=== PATIENT | female | born 1985 | race Caucasian/White ===

== ENCOUNTER → 2017-10-03 17:00 | Outpatient (CLI) | payer OTHER, SELFPAY | PROVIDERS: Visit Provider Physician Assistant | DX: R30.0 Dysuria (principal) | CPT/HCPCS: 87086 ==

== ENCOUNTER → 2020-02-12 12:18 | Outpatient (CLI) | payer OTHER, SELFPAY ==
--- NOTE | 2020-02-12 | DI.MG.S_ITS ---
BILATERAL DIGITAL DIAGNOSTIC MAMMOGRAM 3D/2D: 02/12/2020 CLINICAL: Baseline exam. Left breast lump. No prior exams were available for comparison. The tissue of both breasts is heterogeneously dense. This may lower the sensitivity of mammography. There is a 1.8 cm oval mass with a circumscribed margin in the left breast at 1 o'clock middle depth. This correlates as palpated. No other significant masses, calcifications, or other findings are seen in either breast. IMPRESSION: INCOMPLETE: NEEDS ADDITIONAL IMAGING EVALUATION The 1.8 cm oval mass in the left breast is indeterminate. An ultrasound is recommended. This exam was interpreted at Station ID: [id number]. NOTE: For mammograms, a report in lay terms will be sent to the patient. Approximately 15% of breast malignancies will not be visualized mammographically. In the management of a palpable breast mass, a negative mammogram must not discourage biopsy of a clinically suspicious lesion. SUMMARY: Targeted ultrasound is recommended for further evaluation and will be scheduled immediately following this exam. Electronically Signed By: Bipin ramos/janeth:02/12/2020 14:45:48 ACR BI-RADS Category 0: Incomplete [id number]
--- NOTE | 2020-02-12 | DI.US.S_ITS ---
LIMITED ULTRASOUND OF LEFT BREAST: 02/12/2020 CLINICAL: Left breast lump. Comparison is made to exam dated: 02/12/2020 [facility]. Color flow ultrasound of the left breast was performed. [place] scale images of the real-time examination were reviewed. There is a benign 1.6 cm x 1.6 cm x 1.3 cm simple cyst in the left breast at 1 o'clock anterior depth 3 cm from the nipple. This correlates as palpated and with mammography findings. IMPRESSION: BENIGN There is no sonographic evidence of malignancy. The 1.6 cm x 1.6 cm x 1.3 cm simple cyst in the left breast is benign. A 3 year screening mammogram is recommended. This exam was interpreted at Station ID: [id number]. Electronically Signed By: Bipin ramos/janeth:02/12/2020 14:47:12 letter sent: Normal Exam Ultrasound BI-RADS: 2 Benign
== END ==
PROVIDERS: PCP Family Medicine; Referring Provider Family Medicine; Visit Provider Family Medicine
DX: R92.8 Other abnormal and inconclusive findings on diagnostic imaging of breast (principal); N60.02 Solitary cyst of left breast
CPT/HCPCS: 76642; 77066; G0279

== ENCOUNTER → 2020-12-30 16:06 | Outpatient (CLI) | payer OTHER, SELFPAY ==
--- NOTE | 2020-12-30 | DI.US.S_ITS ---
PROCEDURE: US PELVIC COMPLETE INDICATIONS: ABNORMAL BLEEDING TECHNIQUE: Real-time scanning was performed of the pelvic organs, with image documentation. Additional endovaginal scanning was necessary due to incomplete visualization of the adnexal and endometrial structures by transabdominal scanning. COMPARISON: None. FINDINGS: Uterus: Uterus is normal in size at 8.9 x 4.6 x 6.5 cm. The endometrium measures 10.9 mm in combined thickness. 1.2 cm posterior submucosal fibroid. Ovaries: Dominant follicular cyst associated with the left ovary; otherwise the ovaries are normal bilaterally. No adnexal masses seen. Other: No pathologic free abdominal or pelvic fluid. IMPRESSION: 1.2 cm submucosal fibroid. Dictated by: Anshul Rodriguez [facility] Interpreted: Aime Concepcion MD on 12/31/2020 at 9:34 Transcribed by: YENI on 12/31/2020 at 9:36 Approved by: Aime Concepcion M.D. on 12/31/2020 at 13:36
== END ==
PROVIDERS: PCP Family Medicine; Referring Provider Physician Assistant; Visit Provider Physician Assistant
DX: N92.0 Excessive and frequent menstruation with regular cycle (principal); D25.0 Submucous leiomyoma of uterus
CPT/HCPCS: 76830; 76856

== ENCOUNTER → 2021-01-27 12:17 | Outpatient (CLI) | payer OTHER, SELFPAY | PROVIDERS: PCP Family Medicine; Referring Provider Nurse Practitioner Family; Visit Provider Nurse Practitioner Family | DX: R39.15 Urgency of urination (principal); R30.0 Dysuria | CPT/HCPCS: 87077; 87086; 87147 ==

== ENCOUNTER → 2023-08-24 08:56 | Outpatient (CLI) | payer OTHER, SELFPAY ==
[2023-08-24 09:55] LABS: Add Manual Diff / Slide Review NO; Basophils Absolute Auto 0 /uL (0-100); Basophils Percent Auto 0.8 % (0-2); Eosinophils Absolute Auto 100 /uL (0-450); Eosinophils Percent Auto 1.2 % (2-4); Hematocrit 39.9 % (36-46); Hemoglobin 13.6 g/dL (12.0-16.0); Hemoglobin A1C% w Est Avg Glu 5.3 % (4.0-6.0); Lymphocytes Absolute Auto 1600 /uL (1100-4500); Lymphocytes Percent Auto 28.9 % (25-40); Mean Corpuscular HGB Conc 34.1 % (30-36); Mean Corpuscular Hemoglobin 30.3 PG (26-34); Mean Corpuscular Volume 88.9 fL (80-100); Monocytes Absolute Auto 400 /uL (0-900); Monocytes Percent Auto 7.3 % (3-14); Neutrophils Absolute Auto 3500 /uL (1500-7000); Neutrophils Percent Auto 61.8 % (50-75); Platelet Count 235 X10^3/uL (150-400); Red Blood Cell Count 4.49 X10^6/uL (4.0-5.2); Red Cell Distribution Width 13.1 % (11.6-14.8); White Blood Cell Count 5.7 X10^3/uL (4.5-11.0)
[2023-08-24 10:03] LABS: HEMOLYSIS < 15 (0-50)
[2023-08-24 10:18] LABS: Alanine Aminotransferase 46 IU/L (<35); Albumin 3.9 g/dL (3.5-5.0); Albumin Globulin Ratio 1.4 (1.0-2.8); Alkaline Phosphatase 67 U/L (38-126); Aspartate Aminotransferase 28 IU/L (14-36); BUN Creatinine Ratio 21.5 (6-22); Bilirubin Total 0.4 mg/dL (0.2-1.3); Blood Urea Nitrogen 14 mg/dL (7-17); Calcium 9.6 mg/dL (8.4-10.2); Carbon Dioxide 27 mmol/L (22-32); Chloride 106 mmol/L (98-107); Cholesterol 159 mg/dL (140-199); Estimated Glomerular Filt Rate > 60 mL/min (>60); Globulin 2.8 g/dL (1.7-4.1); Glucose 88 mg/dL (70-100); HDL Cholesterol 51 mg/dL (40-60); LDL Cholesterol Calculated 89 mg/dL (<100); Potassium 4.4 mmol/L (3.4-5.1); Sodium 138 mmol/L (137-145); Total Protein 6.7 g/dL (6.3-8.2); Triglycerides 96 mg/dL (35-150)
[2023-08-24 10:40] LABS: TSH w/ Reflex to FT4 0.93 uIU/mL (0.47-4.68)
[2023-08-24 18:11] LABS: HIV 1 & 2 Ab/Ag 4th Gen Combo NEGATIVE (NEGATIVE); Hep C Virus Ab w/Reflex Quant NEGATIVE s/c (NEGATIVE)
[2023-08-25 12:31] LABS: Vitamin B12 361 pg/mL (239-931)
== END ==
LOC: LAB 08:57
PROVIDERS: PCP Family Medicine; Referring Provider Family Medicine; Visit Provider Family Medicine
DX: N92.0 Excessive and frequent menstruation with regular cycle (principal); R53.82 Chronic fatigue, unspecified; L65.9 Nonscarring hair loss, unspecified; E66.9 Obesity, unspecified; Z11.59 Encounter for screening for other viral diseases; Z11.4 Encounter for screening for human immunodeficiency virus [HIV]
CPT/HCPCS: 36415; 80053; 80061; 82607; 83036; 84443; 85025; 86803; 87389

== ENCOUNTER → 2023-12-07 09:30 | Outpatient (CLI) | payer OTHER, SELFPAY ==
--- NOTE | 2023-12-07 09:31 | DI.RAD.S_ITS ---
PROCEDURE: XR FOOT LT MIN 3V INDICATIONS: pain forefoot after long hike TECHNIQUE: 3 views of the foot were acquired. COMPARISON: None. FINDINGS: Bones: There is a subtle area sclerosis at the base of the 3rd metatarsal bone. No suspicious bony lesions. Soft tissues: No tibiotalar joint effusion. Achilles tendon appears normal. IMPRESSION: 1. There is a subtle area of sclerosis at the base of the 3rd metatarsal bone suspicious for an impaction fracture. Dictated by: Alverto Diamond M.D. on 12/07/2023 at 10:20 Approved by: Alverto Diamond M.D. on 12/07/2023 at 10:29
== END ==
PROVIDERS: PCP Family Medicine; Referring Provider Family Medicine; Visit Provider Family Medicine
DX: S96.912A Strain of unspecified muscle and tendon at ankle and foot level, left foot, initial encounter (principal); X58.XXXA Exposure to other specified factors, initial encounter
CPT/HCPCS: 73630

== ENCOUNTER → 2024-10-19 16:08 | Outpatient (CLI) | payer OTHER, SELFPAY ==
--- NOTE | 2024-10-19 16:09 | DI.MG.S_ITS ---
MM screening mammo BI: 10/19/2024. BI-RADS: 1 CLINICAL: 39-year old female for bilateral screening mammogram. Tyrer-Cuzick lifetime risk of 10.0%. No personal or first-degree family history of breast cancer. PRIOR EXAMS 02/12/2020. MAMMOGRAPHY TECHNIQUE: 2D and 3D (tomosynthesis) digital mammographic views obtained, with additional images as needed for full coverage. Current study was also evaluated with a Computer Aided Detection (CAD) system. DENSITY C. The breasts are heterogeneously dense, which may obscure small masses. MAMMOGRAPHY FINDINGS Bilateral: No suspicious mass, asymmetry, microcalcification, or other abnormality seen. IMPRESSION: * No evidence of malignancy. RECOMMENDATIONS Bilateral * Annual screening mammography. OVERALL ASSESSMENT CATEGORY BI-RADS-1: Negative. The [employer] recommends annual screening mammography beginning at age 40 for women with average risk of breast cancer. ELECTRONICALLY SIGNED: Paramjit Miller M.D. on 10/19/2024 at 10:34:32 PM PT Interpreting Station ID: [id number]
== END ==
PROVIDERS: PCP Family Medicine; Referring Provider Family Medicine; Visit Provider Family Medicine
DX: Z12.31 Encounter for screening mammogram for malignant neoplasm of breast (principal); R92.333 Mammographic heterogeneous density, bilateral breasts
CPT/HCPCS: 77063; 77067